=== PATIENT | female | born 1965 | race American Indian/Alaskan Native ===

== ENCOUNTER 2019-05-23 16:58 | Emergency (ER) | payer SELFPAY | END 2019-05-23 17:10 | disposition left against medical advice (07) | LOC: ED 16:58 | DX: L02.91 Cutaneous abscess, unspecified (principal); Z53.21 Procedure and treatment not carried out due to patient leaving prior to being seen by health care provider ==

== ENCOUNTER 2019-05-23 18:03 | Emergency (ER) | payer MEDICARE ==
[2019-05-23 18:11] VITALS: BP 143/87
--- NOTE | 2019-05-23 18:14 | Emergency Department Report ---
Chief Complaint: Dental/Oral Stated Complaint: ABCESS Time Seen by Provider: 05/23/19 18:08 - HPI History of Present Illness: This is a 53-year-old female that presents to the ER with dental pain for 1 week. Patient states pain is worse with eating. She is nontoxic appearing and well in appearance with no signs of distress. States she visiting family here from [place] and haven't followed up with a dentist. Patient denies any facial swelling, fever, chills, headache, nausea, vomiting, chest pain or SOB. - ROS Review of Systems: HEENT: Dental pain - Exam Vital Signs: Vital Signs 05/23/19 18:09 Temperature 98.9 F Pulse Rate 116 H Respiratory 16 Rate Blood Pressure 143/87 [Left] O2 Sat by Pulse 92 Oximetry Vital Signs 05/23/19 05/23/19 18:09 18:41 Temperature 98.9 F Pulse Rate 116 H 89 Respiratory 16 16 Rate Blood Pressure 143/87 [Left] O2 Sat by Pulse 92 96 Oximetry Physical Exam: GENERAL APPEARANCE: The patient is a 53-year-old well-developed, well-nourished female in no acute distress. HEENT: Gingival swelling around #3 & #14, tenderness, and dark black dental caries center tooth, no induration. CHEST: Symmetric. Nontender to palpation. LUNGS: Breath sounds are equal and clear bilaterally. No wheezes, rhonchi, or rales. HEART: Regular rate and rhythm with normal S1 and S2. No murmurs, gallops, or rubs. ABDOMEN: Soft, flat, and benign. No mass, tenderness, guarding, or rebound. No organomegaly or hernia. Bowel sounds are present. No CVA tenderness or flank mass. EXTREMITIES: No cyanosis, clubbing, or edema. PSYCHIATRIC: The patient is awake, alert, and oriented x3. Recent and remote memory is intact. Appropriate mood and affect. SKIN: No rash. Warm, dry, and well perfused. Good turgor. MSE screening note: Focused history and physical exam performed. Due to findings the following was ordered: ED Medical Decision Making - Medical Decision Making Patient is stable and was examined by me. No acute signs of distress noted. Reports dental pain for several weeks worsening x 2 days. This is a non- emergent complaint. Start amoxicillin and naprosyn. Given list of emergency dental clinics for follow up. Patient agree to discharge treatment plan of care. No further questions noted by the patient. Patient discharged home stable. 05/21/2019 1 05/14/2019 OXYCODONE-ACETAMINOPHEN 10-325 60.0 30 [facility] [id number] [facility] ([id number]) 0 30.0 [employer] [place] 04/17/2019 3 04/15/2019 OXYCODONE-ACETAMINOPHEN 10-325 60.0 30 [facility] [id number] CHANN ([id number]) 0 [place] 03/20/2019 3 03/20/2019 HYDROCODONE-ACETAMIN 10-325 MG 60.0 30 [facility] [id number] CHANN ([id number]) 0 [place] 02/12/2019 3 02/12/2019 HYDROCODONE-ACETAMIN 10-325 MG 60.0 30 [facility] [id number] [place]ANN ([id number]) 0 [place] ED Disposition for MSE Clinical Impression: Toothache, Dental caries Disposition: DC- TO HOME OR SELFCARE Is pt being admited?: No Does the pt Need Aspirin: No Condition: Stable Instructions: Toothache (ED), Dental Caries (ED) Additional Instructions: Follow up with a dentist from the referrals list below. Prescriptions: Naproxen [Naprosyn] 500 mg PO BID PRN #20 tablet PRN Reason: Pain, Moderate (4-6) Amoxicillin [Trimox CAP] 500 mg PO Q8H 7 Days #21 capsule Referrals: [facility] [Outside] - 3-5 Days [facility] [Outside] - 3-5 Days [facility] [Outside] - 3-5 Days GRIFFIN VELAZQUEZ MD [Primary Care Provider] - 3-5 Days Time of Disposition: 18:44
== END 2019-05-23 18:50 | disposition home or self-care (01) ==
LOC: ED 18:03
DX: K02.9 Dental caries, unspecified (principal)
CPT/HCPCS: 99282